=== PATIENT | female | born 1990 | race Two or more races ===

== ENCOUNTER 2024-11-14 15:01 | Emergency (ER) | payer SELFPAY ==
[2024-11-14 15:21] VITALS: BP 151/87; PULSE 80; RESP 16; TEMP 37.2; O2SAT 98; BMI 32.2
--- NOTE | 2024-11-14 15:28 | EDNOTE_ITS ---
ED Extremity Problem RME/HPI General Chief complaint: Extremity Problem,Nontraumatic Stated complaint: LEFT BUTTOCK PAIN RADIATING DOWN LEG AND GROIN Time Seen by Provider: 11/14/24 15:07 Arrival date/time: 11/14/24 15:01 33-year-old female with no significant medical problems presents to the emergency department today with complaints of left buttock pain radiating down her left leg patient reports no saddle anesthesia no loss of bowel or bladder no fever nausea or vomiting no dysuria polyuria Limitations: no limitations Related Data Previous Rx's ?Medication ?Instructions ?Recorded cyclobenzaprine 10 mg tablet 10 mg PO TID PRN muscle s pasm 10 11/14/24 days #30 tab-caps ibuprofen 800 mg tablet 800 mg PO TID PRN pain #30 t abs 11/14/24 prednisone 10 mg tablet 30 mg (3 x 10 mg) PO BID 3 d ays 11/14/24 #18 tabs Allergies Allergy/AdvReac Type Severity Reaction Status Date / Time No Known Allergies Allergy Verified 11/14/24 15:03 Review of Systems Review of Systems Systems Reviewed: All systems reviewed, normal except as documented Constitutional Constitutional: Reports system reviewed and no additional complaints, except as documented, Denies fever(s) and Denies headache(s) Eyes Eyes: Reports system reviewed and no additional complaints, except as documented and Denies blurry vision ENT Ears, Nose, Mouth, and Throat: Reports system reviewed and no additional complaints, except as documented, Denies headache(s), Denies nasal congestion and Denies nasal discharge Cardiovascular Cardiovascular: Reports system reviewed and no additional complaints, except as documented, Denies chest pain and Denies dyspnea Respiratory Respiratory: Reports system reviewed and no additional complaints, except as documented, Denies chest congestion, Denies cough and Denies dyspnea Gastrointestinal Gastrointestinal: Reports system reviewed and no additional complaints, except as documented and Denies abdominal pain Musculoskeletal Musculoskeletal: Reports system reviewed and no additional complaints, except as documented, Denies arthralgias, Denies back pain, Denies numbness, Reports stiffness and Denies tingling Integumentary/Breasts Skin/Breast: Reports system reviewed and no additional complaints, except as documented and Denies rash Neurologic Neurologic: Reports system reviewed and no additional complaints, except as documented, Reports as per HPI, Denies headache(s), Denies numbness and Denies tingling Past Medical History Social History SMOKING STATUS: Never smoker ED Exam General Limitations: Present no limitations General appearance: Present alert and in no apparent distress Head Head exam: Present atraumatic Eye Eye exam: Present normal appearance, PERRL and EOMI ENT ENT exam: Present normal exam, normal oropharynx and mucous membranes moist Neck Neck exam: Present normal inspection, full ROM and trachea midline Chest Chest inspection: Present normal inspection and symmetric chest wall rise Respiratory Respiratory exam: Present normal lung sounds bilaterally Cardiovascular Cardiovascular exam: Present regular rate, normal rhythm and normal heart sounds Abdominal Exam Abdominal exam: Present soft and normal bowel sounds Extremities Exam Extremities exam: Present normal inspection and full ROM Back Exam Back exam: Present normal inspection and full ROM Back 1 view image: 2 1. Pain Neurological Exam Neurological exam: Present alert, oriented X3 and CN II-XII intact Psychiatric Psychiatric exam: Present normal affect and normal mood Skin Skin exam: Present warm, dry, intact and normal color Course Quality Measures none Orders Category Date Time Status Dexamethasone Inj [Decadron Inj] Med 11/14/24 15:28 Discontinued 10 mg PO X1 ONE Ibuprofen Tab [Motrin Tab] Med 11/14/24 15:28 Discontinued 800 mg PO X1 ONE Vital Signs Vital signs: Vital Signs Temperature 99.0 F 11/14/24 15:21 Pulse Rate 80 11/14/24 15:21 Respiratory Rate 16 11/14/24 15:21 Blood Pressure 151/87 H 11/14/24 15:21 Pulse Oximetry (%) 98 11/14/24 15:21 Oxygen Delivery Method Room Air 11/14/24 15:21 O2 saturation 98% room air within normal limits Extremity Problem MDM Narrative MDM Narrative:: 33-year-old female with no significant medical problems presents to the emergency department today with complaints of left buttock pain radiating down her left leg patient reports no saddle anesthesia no loss of bowel or bladder no fever nausea or vomiting no dysuria polyuria On exam patient well-appearing patient does not appear ill or toxic patient walks with steady gait On exam patient does have point tenderness to the left sciatic notch patient does have positive leg raise On exam symptoms highly consistent with sciatica Patient reports no midline back pain Patient discharged home in no distress to follow-up with primary care doctor in the next 24 to 48 hours and for any worsening symptoms to return to the ER immediately Patient data External records reviewed:: [facility] previous records Clinical information provided by:: patient Social determinants that could affect healthcare access:: none Patient has the following chronic illnesses:: None How is presenting disease/condition affected by chronic disease/condition?: no chronic disease Evaluation data The following diagnostics were reviewed and interpreted by me:: other (specify) (N/A) Lab and/or radiology exams considered but not ordered:: Considered and ordered Interpretation Summary: N/A Medications / Prescriptions Medications or Prescriptions considered but not ordered:: Given Medication administrations:: Medication Administration History Discontinued Medications Dexamethasone Sodium Phosphate (Dexamethasone Sod Phos Inj 10 Mg/Ml Vial) 10 mg PO X1 ONE Stop: 11/14/24 15:29 Last Admin: 11/14/24 15:35 Dose: 10 mg Documented By: HANNAH Ibuprofen (Ibuprofen Tab 400 Mg Tablet) 800 mg PO X1 ONE Stop: 11/14/24 15:29 Last Admin: 11/14/24 15:35 Dose: 800 mg Documented By: HANNAH Given Consultations Consultation(s) initiated? (list below): No Diagnosis Extremity Problem Differential Diagnosis: other Most likely diagnosis given after review of the tests above:: Sciatica Admission Indicated Admission indicated?: not indicated Admission Request Was there a request for admission?: No Disposition Plan Disposition Plan: Discharge Discharge Attestation Discharge Attestation: The patient and all family members were given an opportunity to ask questions and understood the discharge instructions. Discharge instructions specifically effects, indications for sooner follow up or return to the emergency department, and the expected course of current diagnosis. Patient condition: Stable Discharge Plan Plan Patient Disposition: HOME (Self Care) Disposition Comment: Stable Prescriptions/Referrals Prescriptions/Med Rec: New cyclobenzaprine 10 mg tablet 10 mg PO TID PRN (Reason: muscle spasm) 10 Days Qty: 30 0RF prednisone 10 mg tablet 30 mg PO BID 3 Days Qty: 18 0RF ibuprofen 800 mg tablet 800 mg PO TID PRN (Reason: pain) Qty: 30 0RF Problem List Clinical Impression: Left sided sciatica Patient/Caregiver Discharge Instructions Education Materials: ED Sciatica Additional Instructions: Please follow up with your primary care doctor in the next 24-48hrs for any worsening symptoms return here immediately Print Language: Serbian Stand Alone Forms: Veronica Award Info., Work/School Release, Patient Portal Info Letter DANO/MARIANELA Supervising Physician DANO/MARIANELA Supervising Physician: dr [email or web address]
[2024-11-14] MEDS: IBUPROFEN TAB 400 MG TABLET 800 MG PO (15:35)
[2024-11-14] MEDS: DEXAMETHASONE SOD PHOS INJ 10 MG/ML VIAL PO (15:35)
== END 2024-11-14 15:45 | disposition home or self-care (01) ==
LOC: SERX 15:47
PROVIDERS: Emergency Provider Emergency Medicine
DX: M54.32 Sciatica, left side (principal)
CPT/HCPCS: 99282; J1100; A9270